=== PATIENT | male | born 1930 | race Caucasian/White ===

== ENCOUNTER 2017-11-28 13:57 | Emergency (ER) | payer MEDICARE, BC, MEDICAID ==
[2017-11-28 18:19] LABS: ADD MAN DIFF? NO
[2017-11-28 18:21] LABS: BASOPHIL # 0.1 10^3/ul (0.0-0.1); EOSINOPHILS # 0.1 10^3/ul (0.0-0.5); EOSINOPHILS % 0.7 % (0.0-7.0); HEMATOCRIT 45.6 % (42.0-52.0); HEMOGLOBIN 15.2 g/dl (14.0-18.0); LYMPHOCYTES # 1.7 10^3/ul (0.8-2.9); LYMPHOCYTES % 24.9 % (15.0-51.0); MEAN CORPUSCULAR HEMOGLOBIN 29.6 pg (29.0-33.0); MEAN CORPUSCULAR HGB CONC 33.3 g/dl (32.0-37.0); MEAN CORPUSCULAR VOLUME 88.7 fl (82.0-101.0); MEAN PLATELET VOLUME 10.3 fl (7.4-10.4); MONOCYTE # 0.7 10^3/ul (0.3-0.9); NEUTROPHIL # 4.3 10^3/ul (1.6-7.5); NEUTROPHILS % 63.1 % (39.0-77.0); PLATELET COUNT 215 10^3/UL (140-415); RED BLOOD COUNT 5.14 10^6/ul (4.70-6.10); RED CELL DISTRIBUTION WIDTH 12.7 % (11.5-14.5)
[2017-11-28 18:21] LABS: WHITE BLOOD COUNT 6.8 10^3/ul (4.8-10.8)
[2017-11-28 19:01] LABS: ALANINE AMINOTRANSFERASE 39 IU/L (13-69); ALBUMIN 4.8 g/dl (3.3-4.9); ALBUMIN/GLOBULIN RATIO 1.45; ALKALINE PHOSPHATASE 110 IU/L (42-121); ANION GAP 23 (8-16); ASPARTATE AMINO TRANSFERASE 27 IU/L (15-46); BILIRUBIN,INDIRECT 0.6 mg/dl (0-1.1); BILIRUBIN,TOTAL 0.6 mg/dl (0.2-1.3); BLOOD UREA NITROGEN 33 mg/dl (7-20); CALCIUM 10.1 mg/dl (8.4-10.2); CARBON DIOXIDE 24 mmol/L (21-31); CHLORIDE 102 mmol/L (97-110); GLUCOSE 314 mg/dl (70-220); POTASSIUM 5.5 mmol/L (3.5-5.1); SODIUM 143 mmol/L (135-144); TOTAL PROTEIN 8.1 g/dl (6.1-8.1)
[2017-11-28 19:03] LABS: LACTIC ACID 2.7 mmol/L (0.5-2.0)
[2017-11-28 19:12] LABS: TROPONIN-I < 0.012 ng/ml (0.00-0.12)
[2017-11-28] MEDS: SOD CHLORIDE 0.9% 1,000 ML IV ×2 (19:29→19:30)
[2017-11-28 20:22] LABS: ADD UMIC NO; UR ASCORBIC ACID NEGATIVE (NEGATIVE); UR BILIRUBIN (Dip) NEGATIVE (NEGATIVE); UR BLOOD (Dip) NEGATIVE (NEGATIVE); UR CLARITY CLEAR (CLEAR); UR COLOR YELLOW (YELLOW); UR GLUCOSE (Dip) 3+ mg/dL (NEGATIVE); UR KETONES (Dip) NEGATIVE (NEGATIVE); UR LEUKOCYTE ESTERASE (Dip) NEGATIVE Leu/ul (NEGATIVE); UR NITRITE (Dip) NEGATIVE (NEGATIVE); UR SPECIFIC GRAVITY (Dip) 1.013 (1.003-1.030); UR TOTAL PROTEIN (Dip) NEGATIVE (NEGATIVE); UR UROBILINOGEN (Dip) NEGATIVE (NEGATIVE)
[2017-11-28] MEDS: ASPIRIN 81 MG TAB PO (22:08)
[2017-11-28] MEDS ORDERED: DOCUSATE SODIUM 100 MG CAP PO (23:00)
[2017-11-28] MEDS ORDERED: BISACODYL (EC) 5 MG TAB PO (23:00)
[2017-11-28] MEDS ORDERED: ONDANSETRON 4 MG INJ IV ×2 (23:00)
[2017-11-28] MEDS ORDERED: NACL 0.9% 3 ML SYG IV (23:00)
[2017-11-28] MEDS ORDERED: ACETAMINOPHEN 325 MG TAB PO ×2 (23:00)
[2017-11-29] MEDS: NA POLYST SULFON 15 GM/60 ML BTL PO (00:07)
[2017-11-29 06:00] LABS: ADD MAN DIFF? NO
[2017-11-29 06:07] LABS: BASOPHILS % 0.6 % (0.0-2.0); EOSINOPHILS # 0.1 10^3/ul (0.0-0.5); HEMATOCRIT 38.9 % (42.0-52.0); LYMPHOCYTES # 1.2 10^3/ul (0.8-2.9); LYMPHOCYTES % 16.4 % (15.0-51.0); MEAN CORPUSCULAR HEMOGLOBIN 29.8 pg (29.0-33.0); MEAN CORPUSCULAR HGB CONC 33.4 g/dl (32.0-37.0); MEAN CORPUSCULAR VOLUME 89.2 fl (82.0-101.0); MEAN PLATELET VOLUME 10.5 fl (7.4-10.4); MONOCYTE # 0.5 10^3/ul (0.3-0.9); NEUTROPHIL # 5.4 10^3/ul (1.6-7.5); NEUTROPHILS % 74.7 % (39.0-77.0); PLATELET COUNT 181 10^3/UL (140-415); RED BLOOD COUNT 4.36 10^6/ul (4.70-6.10); RED CELL DISTRIBUTION WIDTH 12.8 % (11.5-14.5)
[2017-11-29 06:07] LABS: WHITE BLOOD COUNT 7.3 10^3/ul (4.8-10.8)
[2017-11-29 06:16] LABS: HEMOGLOBIN A1C 8.3 % (0-5.9)
[2017-11-29] MEDS ORDERED: SOD CHLORIDE 0.9% 1,000 ML IV (06:30)
[2017-11-29 06:49] LABS: ALANINE AMINOTRANSFERASE 36 IU/L (13-69); ALBUMIN 3.6 g/dl (3.3-4.9); ALBUMIN/GLOBULIN RATIO 1.16; ALKALINE PHOSPHATASE 86 IU/L (42-121); ANION GAP 16 (8-16); ASPARTATE AMINO TRANSFERASE 24 IU/L (15-46); BILIRUBIN,INDIRECT 0.8 mg/dl (0-1.1); BILIRUBIN,TOTAL 0.8 mg/dl (0.2-1.3); BLOOD UREA NITROGEN 28 mg/dl (7-20); CARBON DIOXIDE 26 mmol/L (21-31); CHLORIDE 109 mmol/L (97-110); CHOL/HDL RATIO 4.1 RATIO; CHOLESTEROL 129 mg/dl (100-200); CREATININE 1.23 mg/dl (0.61-1.24); GLUCOSE 192 mg/dl (70-220); HDL CHOLESTEROL 31 mg/dl (31-75); LDL CHOLESTEROL,CALCULATED 73 mg/dl; MAGNESIUM 2.1 mg/dl (1.7-2.5); POTASSIUM 4.9 mmol/L (3.5-5.1); SODIUM 146 mmol/L (135-144); TOTAL PROTEIN 6.7 g/dl (6.1-8.1); TRIGLYCERIDES 126 mg/dl (0-149)
[2017-11-29] MEDS ORDERED: GLUCAGON 1 MG INJ IM (07:00)
[2017-11-29] MEDS ORDERED: DEXTROSE 50% 50 ML SYRINGE IV ×2 (07:00)
[2017-11-29] MEDS ORDERED: GLUCOSE GEL 15 GRAM TUBE BUCCAL (07:00)
[2017-11-29] MEDS ORDERED: GLUCOSE GEL 15 GRAM TUBE PO ×2 (07:00)
[2017-11-29 08:25] LABS: LACTIC ACID 1.2 mmol/L (0.5-2.0)
[2017-11-29 08:28] LABS: ETHANOL < 10.0 mg/dl
[2017-11-29] MEDS: INSULIN ASPART [NOVOLOG] 3 ML PEN SC (09:50)
[2017-11-29 09:54] LABS: AMPHETAMINE/METHAMPHETAMINE Negative (NEGATIVE); BARBITURATES Negative (NEGATIVE); BENZODIAZEPINES Negative (NEGATIVE); CANNABINOIDS Negative (NEGATIVE); COCAINE Negative (NEGATIVE); OPIATES Negative (NEGATIVE)
[2017-11-29] MEDS: ASPIRIN 81 MG TAB PO (09:54)
[2017-11-29] MEDS: AMLODIPINE 10 MG TAB PO (09:54)
[2017-11-29] MEDS: MEMANTINE 5 MG TAB PO (09:54)
[2017-11-29] MEDS: DONEPEZIL 5 MG TAB PO (09:54)
[2017-11-29] MEDS ORDERED: ATORVASTATIN 10 MG TAB PO (21:00)
[2017-11-30] MEDS ORDERED: ACCU-CHEK XX (02:00)
== END 2017-11-29 13:13 | disposition home or self-care (01) ==
LOC: E/R 11-29 13:13
DX: G45.9 Transient cerebral ischemic attack, unspecified (principal); E86.0 Dehydration; E87.5 Hyperkalemia
CPT/HCPCS: 36415; 70450; 80053; 80061; 80306; 80307; 81003; 82962; 83036; 83605; 83735; 84443; 84484; 85025; 93005; 93306; 93880; 96360; 99285-25

== ENCOUNTER 2018-03-13 18:32 | Inpatient (IN) | payer MEDICARE, BC ==
[2018-03-13 18:54] LABS: ADD MAN DIFF? NO
[2018-03-13 18:56] LABS: WHITE BLOOD COUNT 6.4 10^3/ul (4.8-10.8)
[2018-03-13 18:56] LABS: BASOPHILS % 0.6 % (0.0-2.0); EOSINOPHILS # 0.1 10^3/ul (0.0-0.5); EOSINOPHILS % 1.1 % (0.0-7.0); HEMATOCRIT 45.6 % (42.0-52.0); HEMOGLOBIN 15.1 g/dl (14.0-18.0); LYMPHOCYTES # 2.6 10^3/ul (0.8-2.9); LYMPHOCYTES % 40.3 % (15.0-51.0); MEAN CORPUSCULAR HEMOGLOBIN 29.5 pg (29.0-33.0); MEAN CORPUSCULAR HGB CONC 33.1 g/dl (32.0-37.0); MEAN CORPUSCULAR VOLUME 89.2 fl (82.0-101.0); MEAN PLATELET VOLUME 10.4 fl (7.4-10.4); MONOCYTE # 0.5 10^3/ul (0.3-0.9); MONOCYTES % 7.2 % (0.0-11.0); NEUTROPHIL # 3.2 10^3/ul (1.6-7.5); NEUTROPHILS % 49.7 % (39.0-77.0); PLATELET COUNT 174 10^3/UL (140-415); RED BLOOD COUNT 5.11 10^6/ul (4.70-6.10); RED CELL DISTRIBUTION WIDTH 13.2 % (11.5-14.5)
[2018-03-13] MEDS: FENTAnyl 50 MCG/ML VIAL IV (19:03)
[2018-03-13] MEDS: SOD CHLORIDE 0.9% 1,000 ML IV (19:04)
[2018-03-13] MEDS: ASPIRIN 300 MG SUPP PR ×2 (19:04→20:51)
[2018-03-13 19:26] LABS: ALANINE AMINOTRANSFERASE 36 IU/L (13-69); ALBUMIN 4.3 g/dl (3.3-4.9); ALBUMIN/GLOBULIN RATIO 1.22; ALKALINE PHOSPHATASE 84 IU/L (42-121); ANION GAP 20 (8-16); ASPARTATE AMINO TRANSFERASE 50 IU/L (15-46); BILIRUBIN,INDIRECT 0.8 mg/dl (0-1.1); BILIRUBIN,TOTAL 0.8 mg/dl (0.2-1.3); BLOOD UREA NITROGEN 21 mg/dl (7-20); CALCIUM 9.4 mg/dl (8.4-10.2); CARBON DIOXIDE 16 mmol/L (21-31); CHLORIDE 109 mmol/L (97-110); CREATININE 1.08 mg/dl (0.61-1.24); GLUCOSE 249 mg/dl (70-220); SODIUM 141 mmol/L (135-144); TOTAL PROTEIN 7.8 g/dl (6.1-8.1)
[2018-03-13 19:27] LABS: INR 1.05; PROTIME 13.8 Sec (11.9-14.9); PT RATIO 1.1
[2018-03-13 19:28] LABS: PARTIAL THROMBOPLASTIN TIME 35.3 Sec (25.0-35.0)
[2018-03-13 19:31] LABS: LACTIC ACID 8.5 mmol/L (0.5-2.0)
[2018-03-13] MEDS: SODIUM CHLORIDE 0.9% 1L BAG IV* (20:08)
[2018-03-13 20:09] LABS: AADO2 Arterial 95.9 mmHg (7.0-24.0); Allen Test ACCEPTAB; Arterial Base Excess -8.5 mmol/L (-3.0-3); Arterial COHb 1.9 % (0.0-3.0); Arterial Fraction of Oxyhgb 97.4 % (93.0-99.0); Arterial HCO3 16.9 mmol/L (22.0-26.0); Arterial MetHb 0.3 % (0.0-1.5); Arterial Total Hemglobin 13.4 g/dl (12.0-18.0); Arterial pCO2 35.1 mmhg (35-45); MODE VENT - AC; Site Left Radial
[2018-03-13] MEDS: CEFEPIME 1GM/50 ML (PMX) 50 ML IVPB (20:11)
[2018-03-13] MEDS: SODIUM CHLORIDE 0.9% 500 ML BAG IV* ×2 (20:11→21:01)
[2018-03-13 20:19] LABS: ADD UMIC YES; UR ASCORBIC ACID NEGATIVE (NEGATIVE); UR BACTERIA FEW /HPF (NONE SEEN); UR BILIRUBIN (Dip) NEGATIVE (NEGATIVE); UR BLOOD (Dip) NEGATIVE (NEGATIVE); UR CLARITY CLOUDY (CLEAR); UR COLOR YELLOW (YELLOW); UR GLUCOSE (Dip) 3+ mg/dL (NEGATIVE); UR KETONES (Dip) NEGATIVE (NEGATIVE); UR LEUKOCYTE ESTERASE (Dip) NEGATIVE Leu/ul (NEGATIVE); UR MUCUS FEW /HPF (NONE SEEN); UR NITRITE (Dip) NEGATIVE (NEGATIVE); UR RBC 10 /HPF (0-5); UR SPECIFIC GRAVITY (Dip) 1.021 (1.003-1.030); UR SQUAMOUS EPITHELIAL CELL MODERATE /HPF (FEW); UR TOTAL PROTEIN (Dip) 3+ mg/dl (NEGATIVE); UR UROBILINOGEN (Dip) NEGATIVE (NEGATIVE); UR WBC 17 /HPF (0-5)
[2018-03-13 20:19] LABS: LACTIC ACID 4.1 mmol/L (0.5-2.0)
[2018-03-13] MEDS ORDERED: ACETAMINOPHEN 325 MG TAB PO (20:30)
[2018-03-13] MEDS ORDERED: ONDANSETRON 4 MG INJ IV ×2 (20:30→21:30)
[2018-03-13 20:35] LABS: PHOSPHORUS 4.2 mg/dl (2.5-4.9)
[2018-03-13 20:35] LABS: MAGNESIUM 1.8 mg/dl (1.7-2.5)
[2018-03-13] MEDS: SOD CHLORIDE 0.9% 100 ML (20:37)
[2018-03-13] MEDS: IODIXANOL LOCM 100 ML BTL (20:37)
[2018-03-13] MEDS: VANCOMYCIN 1 GM (PMX) 250 ML IVPB (20:46)
[2018-03-13] MEDS ORDERED: ACETAMINOPHEN 650MG/20.3ML CUP PO (21:30)
[2018-03-13] MEDS ORDERED: IPRATROPIUM (HFA) 12.9 GM INHALER INH (21:30)
[2018-03-13] MEDS ORDERED: MEPERIDINE 25 MG INJ IV ×2 (21:30)
[2018-03-13] MEDS ORDERED: LORAZEPAM 2 MG INJ IV (21:30)
[2018-03-13] MEDS ORDERED: ALBUTEROL HFA 8 GM INHALER INH (21:30)
[2018-03-13] MEDS ORDERED: morphine 2 MG INJ IV (21:30)
[2018-03-13] MEDS ORDERED: ACETAMINOPHEN 650 MG SUPP PR (21:30)
[2018-03-13] MEDS ORDERED: DEXTROSE 50% 50 ML SYRINGE IV ×2 (21:30)
[2018-03-13] MEDS: FENTAnyl (DRIP) 1000 mcg/100mL 100 ML IV (21:53)
[2018-03-13 21:56] LABS: AADO2 Arterial 34.3 mmHg (7.0-24.0); Allen Test ACCEPTAB; Arterial Base Excess -7.7 mmol/L (-3.0-3); Arterial COHb 0.2 % (0.0-3.0); Arterial Fraction of Oxyhgb 98.6 % (93.0-99.0); Arterial HCO3 18.9 mmol/L (22.0-26.0); Arterial MetHb 0.2 % (0.0-1.5); Arterial Total Hemglobin 14.4 g/dl (12.0-18.0); Arterial pCO2 39.1 mmhg (35-45); MODE VENT - AC; Site Left Radial; Temperature 35.3 C
[2018-03-13] MEDS: PROPOFOL 100 ML IV (22:14)
[2018-03-13] MEDS: ACCU-CHEK XX ×2 (22:14→22:30)
[2018-03-13 22:23] LABS: ADD MAN DIFF? NO
[2018-03-13 22:29] LABS: WHITE BLOOD COUNT 10.7 10^3/ul (4.8-10.8)
[2018-03-13 22:29] LABS: ABNORMAL IP MESSAGE 1; BASOPHILS % 0.2 % (0.0-2.0); EOSINOPHILS % 0.1 % (0.0-7.0); HEMATOCRIT 38.9 % (42.0-52.0); HEMOGLOBIN 12.7 g/dl (14.0-18.0); LYMPHOCYTES # 0.6 10^3/ul (0.8-2.9); LYMPHOCYTES % 5.1 % (15.0-51.0); MEAN CORPUSCULAR HEMOGLOBIN 29.3 pg (29.0-33.0); MEAN CORPUSCULAR HGB CONC 32.6 g/dl (32.0-37.0); MEAN CORPUSCULAR VOLUME 89.8 fl (82.0-101.0); MONOCYTE # 0.6 10^3/ul (0.3-0.9); MONOCYTES % 5.8 % (0.0-11.0); NEUTROPHIL # 9.5 10^3/ul (1.6-7.5); NEUTROPHILS % 88.2 % (39.0-77.0); PLATELET COUNT 157 10^3/UL (140-415); POSITIVE DIFF @See below; RED BLOOD COUNT 4.33 10^6/ul (4.70-6.10); RED CELL DISTRIBUTION WIDTH 13.2 % (11.5-14.5)
[2018-03-13 22:46] LABS: ALANINE AMINOTRANSFERASE 46 IU/L (13-69); ALBUMIN 3.2 g/dl (3.3-4.9); ALBUMIN/GLOBULIN RATIO 1.18; ALKALINE PHOSPHATASE 76 IU/L (42-121); ANION GAP 11 (8-16); ASPARTATE AMINO TRANSFERASE 42 IU/L (15-46); BILIRUBIN,INDIRECT 0.7 mg/dl (0-1.1); BILIRUBIN,TOTAL 0.7 mg/dl (0.2-1.3); BLOOD UREA NITROGEN 20 mg/dl (7-20); CALCIUM 8.3 mg/dl (8.4-10.2); CARBON DIOXIDE 21 mmol/L (21-31); CHLORIDE 113 mmol/L (97-110); CREATININE 0.95 mg/dl (0.61-1.24); GLUCOSE 240 mg/dl (70-220); POTASSIUM 4.5 mmol/L (3.5-5.1); SODIUM 140 mmol/L (135-144); TOTAL PROTEIN 5.9 g/dl (6.1-8.1)
[2018-03-13 22:53] LABS: PARTIAL THROMBOPLASTIN TIME 29.7 Sec (25.0-35.0)
[2018-03-13 22:58] LABS: TROPONIN-I 0.489 ng/ml (0.000-0.120)
[2018-03-13 23:10] LABS: INR 1.13; PROTIME 14.7 Sec (11.9-14.9); PT RATIO 1.1
[2018-03-14] MEDS: ACCU-CHEK XX ×24 (00:29→23:56)
[2018-03-14] MEDS: INSULIN HUMAN REGULAR 100 UNIT in SOD CHLORIDE 0.9% 99 ML IV ×2 (00:52→23:56)
[2018-03-14] MEDS: PROPOFOL 100 ML IV ×3 (02:01→22:43)
[2018-03-14] MEDS: DEXTROSE 5%-0.45% NACL 1,000 ML IV ×3 (02:24→18:01)
[2018-03-14] MEDS: VECURONIUM 100 MG in DEXTROSE 5% 100 ML IV ×4 (02:33→23:54)
[2018-03-14 04:15] LABS: ADD MAN DIFF? NO
[2018-03-14 04:19] LABS: BASOPHILS % 0.3 % (0.0-2.0); EOSINOPHILS % 0.1 % (0.0-7.0); HEMATOCRIT 38.4 % (42.0-52.0); HEMOGLOBIN 12.8 g/dl (14.0-18.0); LYMPHOCYTES # 0.8 10^3/ul (0.8-2.9); LYMPHOCYTES % 7.6 % (15.0-51.0); MEAN CORPUSCULAR HEMOGLOBIN 29.3 pg (29.0-33.0); MEAN CORPUSCULAR HGB CONC 33.3 g/dl (32.0-37.0); MEAN CORPUSCULAR VOLUME 87.9 fl (82.0-101.0); MEAN PLATELET VOLUME 10.2 fl (7.4-10.4); MONOCYTE # 0.6 10^3/ul (0.3-0.9); MONOCYTES % 6.1 % (0.0-11.0); NEUTROPHIL # 8.5 10^3/ul (1.6-7.5); NEUTROPHILS % 85.5 % (39.0-77.0); PLATELET COUNT 147 10^3/UL (140-415); RED BLOOD COUNT 4.37 10^6/ul (4.70-6.10); RED CELL DISTRIBUTION WIDTH 13.2 % (11.5-14.5)
[2018-03-14] MEDS ORDERED: PENDING SANTYL ORDER FOR WOUND CARE XX (04:30)
[2018-03-14 04:38] LABS: INR 1.02; PROTIME 13.5 Sec (11.9-14.9); PT RATIO 1.1
[2018-03-14 04:39] LABS: PARTIAL THROMBOPLASTIN TIME 30.3 Sec (25.0-35.0)
[2018-03-14 04:42] LABS: ALANINE AMINOTRANSFERASE 52 IU/L (13-69); ALBUMIN/GLOBULIN RATIO 1.03; ALKALINE PHOSPHATASE 67 IU/L (42-121); AMYLASE 168 U/L (11-123); ANION GAP 13 (8-16); ASPARTATE AMINO TRANSFERASE 51 IU/L (15-46); BILIRUBIN,INDIRECT 0.5 mg/dl (0-1.1); BILIRUBIN,TOTAL 0.5 mg/dl (0.2-1.3); BLOOD UREA NITROGEN 20 mg/dl (7-20); CALCIUM 8.5 mg/dl (8.4-10.2); CARBON DIOXIDE 25 mmol/L (21-31); CHLORIDE 112 mmol/L (97-110); CREATININE 0.82 mg/dl (0.61-1.24); GLUCOSE 205 mg/dl (70-220); LIPASE 157 U/L (23-300); MAGNESIUM 1.9 mg/dl (1.7-2.5); PHOSPHORUS 2.6 mg/dl (2.5-4.9); POTASSIUM 3.7 mmol/L (3.5-5.1); SODIUM 146 mmol/L (135-144); TOTAL PROTEIN 5.9 g/dl (6.1-8.1)
[2018-03-14 04:45] LABS: AADO2 Arterial 57.5 mmHg (7.0-24.0); Allen Test ACCEPTAB; Arterial Base Excess -2.5 mmol/L (-3.0-3); Arterial Blood Gas Oxygen Sat 98.7 mmHG (95.0-100.0); Arterial COHb 0.3 % (0.0-3.0); Arterial Fraction of Oxyhgb 98.1 % (93.0-99.0); Arterial HCO3 20.9 mmol/L (22.0-26.0); Arterial MetHb 0.3 % (0.0-1.5); Arterial Total Hemglobin 13.3 g/dl (12.0-18.0); Arterial pCO2 27.8 mmhg (35-45); MODE VENT - AC; Site Right Radial; Temperature 33.5 C
[2018-03-14 04:57] LABS: LACTIC ACID 2.1 mmol/L (0.5-2.0)
[2018-03-14] MEDS: SOD CHLORIDE 0.9% 1,000 ML IV ×3 (05:06→23:53)
[2018-03-14 05:09] LABS: D-DIMER 9967.29 ng/ml (<460)
[2018-03-14] MEDS: ARTIFICIAL TEARS 15 ML OPH BOTH EYES ×4 (05:11→18:01)
[2018-03-14] MEDS: OCULAR LUBRICANT 3.5 GM OPH OINT BOTH EYES ×4 (05:12→18:01)
[2018-03-14] MEDS: CEFEPIME 1GM/50 ML (PMX) 50 ML IVPB ×2 (09:08→20:54)
[2018-03-14] MEDS: FAMOTIDINE 20 MG INJ IV ×2 (09:08→20:54)
[2018-03-14] MEDS: HEPARIN 5,000 UNIT/0.5 ML VIAL SC ×2 (09:10→20:54)
[2018-03-14 10:26] LABS: AADO2 Arterial 60.5 mmHg (7.0-24.0); Allen Test ACCEPTAB; Arterial Base Excess -1.3 mmol/L (-3.0-3); Arterial Blood Gas Oxygen Sat 98.9 mmHG (95.0-100.0); Arterial COHb 0.5 % (0.0-3.0); Arterial Fraction of Oxyhgb 98.2 % (93.0-99.0); Arterial HCO3 21.9 mmol/L (22.0-26.0); Arterial MetHb 0.2 % (0.0-1.5); Arterial Total Hemglobin 13.7 g/dl (12.0-18.0); Arterial pCO2 27.8 mmhg (35-45); MODE VENT - AC; Site Right Radial; Temperature 33.4 C
[2018-03-14 10:30] LABS: ADD MAN DIFF? NO
[2018-03-14 10:38] LABS: BASOPHILS % 0.3 % (0.0-2.0); EOSINOPHILS % 0.1 % (0.0-7.0); HEMATOCRIT 37.3 % (42.0-52.0); HEMOGLOBIN 12.8 g/dl (14.0-18.0); LYMPHOCYTES # 0.6 10^3/ul (0.8-2.9); MEAN CORPUSCULAR HEMOGLOBIN 29.8 pg (29.0-33.0); MEAN CORPUSCULAR HGB CONC 34.3 g/dl (32.0-37.0); MEAN CORPUSCULAR VOLUME 86.7 fl (82.0-101.0); MEAN PLATELET VOLUME 10.5 fl (7.4-10.4); MONOCYTE # 0.4 10^3/ul (0.3-0.9); NEUTROPHIL # 6.5 10^3/ul (1.6-7.5); NEUTROPHILS % 86.3 % (39.0-77.0); PLATELET COUNT 143 10^3/UL (140-415); RED CELL DISTRIBUTION WIDTH 13.2 % (11.5-14.5)
[2018-03-14 10:38] LABS: WHITE BLOOD COUNT 7.5 10^3/ul (4.8-10.8)
[2018-03-14 10:56] LABS: LACTIC ACID 2.2 mmol/L (0.5-2.0)
[2018-03-14 11:04] LABS: ALANINE AMINOTRANSFERASE 51 IU/L (13-69); ALBUMIN 2.8 g/dl (3.3-4.9); ALBUMIN/GLOBULIN RATIO 1.07; ALKALINE PHOSPHATASE 65 IU/L (42-121); AMYLASE 134 U/L (11-123); ANION GAP 11 (8-16); ASPARTATE AMINO TRANSFERASE 50 IU/L (15-46); BILIRUBIN,INDIRECT 0.6 mg/dl (0-1.1); BILIRUBIN,TOTAL 0.6 mg/dl (0.2-1.3); BLOOD UREA NITROGEN 17 mg/dl (7-20); CALCIUM 8.3 mg/dl (8.4-10.2); CARBON DIOXIDE 24 mmol/L (21-31); CHLORIDE 112 mmol/L (97-110); GLUCOSE 158 mg/dl (70-220); LIPASE 158 U/L (23-300); MAGNESIUM 1.8 mg/dl (1.7-2.5); PHOSPHORUS 1.8 mg/dl (2.5-4.9); POTASSIUM 3.1 mmol/L (3.5-5.1); SODIUM 144 mmol/L (135-144); TOTAL PROTEIN 5.4 g/dl (6.1-8.1)
[2018-03-14] MEDS: MAGNESIUM SULFATE 2 GM/50 ML 50 ML IVPB (11:42)
[2018-03-14] MEDS: SOD CHLORIDE 0.9% 500 ML IV (12:51)
[2018-03-14] MEDS: POTASSIUM CHLORIDE 100 ML IVPB (13:50)
[2018-03-14 15:23] LABS: Allen Test ACCEPTAB; Arterial Base Excess -1.6 mmol/L (-3.0-3); Arterial Blood Gas Oxygen Sat 98.9 mmHG (95.0-100.0); Arterial COHb 0.3 % (0.0-3.0); Arterial Fraction of Oxyhgb 98.4 % (93.0-99.0); Arterial HCO3 21.4 mmol/L (22.0-26.0); Arterial MetHb 0.2 % (0.0-1.5); Arterial Total Hemglobin 13.4 g/dl (12.0-18.0); Arterial pCO2 26.4 mmhg (35-45); MODE VENT - AC; Site Right Radial; Temperature 33.3 C
[2018-03-14 16:52] LABS: ADD MAN DIFF? NO
[2018-03-14 16:55] LABS: BASOPHILS % 0.2 % (0.0-2.0); EOSINOPHILS % 0.1 % (0.0-7.0); HEMATOCRIT 36.9 % (42.0-52.0); HEMOGLOBIN 12.7 g/dl (14.0-18.0); LYMPHOCYTES # 0.7 10^3/ul (0.8-2.9); LYMPHOCYTES % 8.2 % (15.0-51.0); MEAN CORPUSCULAR HEMOGLOBIN 29.7 pg (29.0-33.0); MEAN CORPUSCULAR HGB CONC 34.4 g/dl (32.0-37.0); MEAN CORPUSCULAR VOLUME 86.2 fl (82.0-101.0); MEAN PLATELET VOLUME 10.5 fl (7.4-10.4); MONOCYTE # 0.4 10^3/ul (0.3-0.9); NEUTROPHILS % 86.3 % (39.0-77.0); PLATELET COUNT 141 10^3/UL (140-415); RED BLOOD COUNT 4.28 10^6/ul (4.70-6.10); RED CELL DISTRIBUTION WIDTH 13.2 % (11.5-14.5)
[2018-03-14 16:55] LABS: WHITE BLOOD COUNT 8.2 10^3/ul (4.8-10.8)
[2018-03-14 17:12] LABS: ALANINE AMINOTRANSFERASE 45 IU/L (13-69); ALBUMIN 2.9 g/dl (3.3-4.9); ALKALINE PHOSPHATASE 66 IU/L (42-121); AMYLASE 143 U/L (11-123); ANION GAP 10 (8-16); ASPARTATE AMINO TRANSFERASE 51 IU/L (15-46); BILIRUBIN,INDIRECT 0.8 mg/dl (0-1.1); BILIRUBIN,TOTAL 0.8 mg/dl (0.2-1.3); BLOOD UREA NITROGEN 16 mg/dl (7-20); CALCIUM 8.1 mg/dl (8.4-10.2); CARBON DIOXIDE 22 mmol/L (21-31); CHLORIDE 115 mmol/L (97-110); CREATININE 0.71 mg/dl (0.61-1.24); GLUCOSE 105 mg/dl (70-220); LIPASE 116 U/L (23-300); MAGNESIUM 2.7 mg/dl (1.7-2.5); PHOSPHORUS 1.5 mg/dl (2.5-4.9); POTASSIUM 3.5 mmol/L (3.5-5.1); SODIUM 143 mmol/L (135-144); TOTAL PROTEIN 5.8 g/dl (6.1-8.1)
[2018-03-14 17:13] LABS: LACTIC ACID 1.6 mmol/L (0.5-2.0)
[2018-03-14 17:14] LABS: INR 1.03; PROTIME 13.6 Sec (11.9-14.9); PT RATIO 1.1
[2018-03-14 17:15] LABS: PARTIAL THROMBOPLASTIN TIME 39.6 Sec (25.0-35.0)
[2018-03-14 17:28] LABS: TROPONIN-I 0.592 ng/ml (0.000-0.120)
[2018-03-14 21:24] LABS: AADO2 Arterial 60.7 mmHg (7.0-24.0); Allen Test ACCEPTAB; Arterial Base Excess -2.6 mmol/L (-3.0-3); Arterial Blood Gas Oxygen Sat 98.7 mmHG (95.0-100.0); Arterial COHb 0.3 % (0.0-3.0); Arterial Fraction of Oxyhgb 98.3 % (93.0-99.0); Arterial HCO3 20.4 mmol/L (22.0-26.0); Arterial MetHb 0.1 % (0.0-1.5); Arterial Total Hemglobin 13.6 g/dl (12.0-18.0); Arterial pCO2 26.3 mmhg (35-45); MODE VENT - AC; Site Right Radial; Temperature 33.4 C
[2018-03-14] MEDS: ACETAMINOPHEN 650 MG SUPP PR (21:30)
[2018-03-14 22:24] LABS: ADD MAN DIFF? NO
[2018-03-14 22:28] LABS: WHITE BLOOD COUNT 8.8 10^3/ul (4.8-10.8)
[2018-03-14 22:28] LABS: BASOPHILS % 0.1 % (0.0-2.0); EOSINOPHILS % 0.2 % (0.0-7.0); HEMATOCRIT 36.8 % (42.0-52.0); HEMOGLOBIN 12.7 g/dl (14.0-18.0); LYMPHOCYTES # 0.7 10^3/ul (0.8-2.9); LYMPHOCYTES % 7.5 % (15.0-51.0); MEAN CORPUSCULAR HEMOGLOBIN 29.6 pg (29.0-33.0); MEAN CORPUSCULAR HGB CONC 34.5 g/dl (32.0-37.0); MEAN CORPUSCULAR VOLUME 85.8 fl (82.0-101.0); MEAN PLATELET VOLUME 10.1 fl (7.4-10.4); MONOCYTE # 0.4 10^3/ul (0.3-0.9); MONOCYTES % 4.1 % (0.0-11.0); NEUTROPHIL # 7.7 10^3/ul (1.6-7.5); NEUTROPHILS % 87.9 % (39.0-77.0); PLATELET COUNT 129 10^3/UL (140-415); POSITIVE DIFF @See below; RED BLOOD COUNT 4.29 10^6/ul (4.70-6.10); RED CELL DISTRIBUTION WIDTH 13.2 % (11.5-14.5)
[2018-03-14 22:46] LABS: INR 1.09; PROTIME 14.2 Sec (11.9-14.9); PT RATIO 1.1
[2018-03-14 22:47] LABS: PARTIAL THROMBOPLASTIN TIME 62.1 Sec (25.0-35.0)
[2018-03-14 22:47] LABS: LACTIC ACID 1.2 mmol/L (0.5-2.0)
[2018-03-14 22:49] LABS: ALANINE AMINOTRANSFERASE 52 IU/L (13-69); ALBUMIN 2.7 g/dl (3.3-4.9); ALKALINE PHOSPHATASE 66 IU/L (42-121); AMYLASE 119 U/L (11-123); ANION GAP 8 (8-16); ASPARTATE AMINO TRANSFERASE 51 IU/L (15-46); BILIRUBIN,INDIRECT 0.7 mg/dl (0-1.1); BILIRUBIN,TOTAL 0.7 mg/dl (0.2-1.3); BLOOD UREA NITROGEN 15 mg/dl (7-20); CALCIUM 8.2 mg/dl (8.4-10.2); CARBON DIOXIDE 23 mmol/L (21-31); CHLORIDE 113 mmol/L (97-110); GLUCOSE 166 mg/dl (70-220); LIPASE 107 U/L (23-300); MAGNESIUM 2.5 mg/dl (1.7-2.5); PHOSPHORUS 2.1 mg/dl (2.5-4.9); POTASSIUM 3.4 mmol/L (3.5-5.1); SODIUM 141 mmol/L (135-144); TOTAL PROTEIN 5.4 g/dl (6.1-8.1)
[2018-03-14 23:01] LABS: D-DIMER 3088.46 ng/ml (<460)
[2018-03-14 23:25] LABS: TROPONIN-I 0.465 ng/ml (0.000-0.120)
[2018-03-14] MEDS: FENTAnyl (DRIP) 1000 mcg/100mL 100 ML IV (23:55)
[2018-03-15] MEDS: ACCU-CHEK XX ×25 (00:13→23:55)
[2018-03-15] MEDS: ACETAMINOPHEN 650MG/20.3ML CUP PO ×6 (00:16→23:55)
[2018-03-15] MEDS: OCULAR LUBRICANT 3.5 GM OPH OINT BOTH EYES ×5 (00:16→23:55)
[2018-03-15] MEDS: ARTIFICIAL TEARS 15 ML OPH BOTH EYES ×5 (00:16→23:55)
[2018-03-15 03:03] LABS: AADO2 Arterial 67.7 mmHg (7.0-24.0); Allen Test ACCEPTAB; Arterial Base Excess -3.6 mmol/L (-3.0-3); Arterial Blood Gas Oxygen Sat 98.5 mmHG (95.0-100.0); Arterial COHb 0.3 % (0.0-3.0); Arterial HCO3 18.7 mmol/L (22.0-26.0); Arterial MetHb 0.2 % (0.0-1.5); Arterial Total Hemglobin 12.8 g/dl (12.0-18.0); Arterial pCO2 23.1 mmhg (35-45); MODE VENT - AC; Site Right Radial; Temperature 33.9 C
[2018-03-15] MEDS: ACETAMINOPHEN 650 MG SUPP PR ×4 (03:30→21:30)
[2018-03-15] MEDS: DEXTROSE 5%-0.45% NACL 1,000 ML IV ×3 (03:54→23:55)
[2018-03-15 04:12] LABS: ADD MAN DIFF? NO
[2018-03-15 04:18] LABS: ABNORMAL IP MESSAGE 1; BASOPHILS % 0.2 % (0.0-2.0); EOSINOPHILS % 0.1 % (0.0-7.0); HEMATOCRIT 33.9 % (42.0-52.0); HEMOGLOBIN 11.8 g/dl (14.0-18.0); LYMPHOCYTES # 0.6 10^3/ul (0.8-2.9); LYMPHOCYTES % 6.3 % (15.0-51.0); MEAN CORPUSCULAR HEMOGLOBIN 29.4 pg (29.0-33.0); MEAN CORPUSCULAR HGB CONC 34.8 g/dl (32.0-37.0); MEAN CORPUSCULAR VOLUME 84.5 fl (82.0-101.0); MEAN PLATELET VOLUME 10.6 fl (7.4-10.4); MONOCYTE # 0.3 10^3/ul (0.3-0.9); MONOCYTES % 3.5 % (0.0-11.0); NEUTROPHIL # 8.4 10^3/ul (1.6-7.5); NEUTROPHILS % 89.7 % (39.0-77.0); PLATELET COUNT 122 10^3/UL (140-415); POSITIVE DIFF @See below; RED BLOOD COUNT 4.01 10^6/ul (4.70-6.10); RED CELL DISTRIBUTION WIDTH 13.2 % (11.5-14.5)
[2018-03-15 04:18] LABS: WHITE BLOOD COUNT 9.3 10^3/ul (4.8-10.8)
[2018-03-15 04:45] LABS: CHOLESTEROL 112 mg/dl (100-200)
[2018-03-15 04:45] LABS: CHOL/HDL RATIO 2.9 RATIO; HDL CHOLESTEROL 38 mg/dl (31-75); LDL CHOLESTEROL,CALCULATED 53 mg/dl; TRIGLYCERIDES 104 mg/dl (0-149)
[2018-03-15 04:46] LABS: ALANINE AMINOTRANSFERASE 43 IU/L (13-69); ALBUMIN 2.4 g/dl (3.3-4.9); ALBUMIN/GLOBULIN RATIO 0.96; ALKALINE PHOSPHATASE 58 IU/L (42-121); AMYLASE 79 U/L (11-123); ANION GAP 9 (8-16); ASPARTATE AMINO TRANSFERASE 44 IU/L (15-46); BILIRUBIN,INDIRECT 0.7 mg/dl (0-1.1); BILIRUBIN,TOTAL 0.7 mg/dl (0.2-1.3); BLOOD UREA NITROGEN 15 mg/dl (7-20); CALCIUM 7.7 mg/dl (8.4-10.2); CARBON DIOXIDE 20 mmol/L (21-31); CHLORIDE 117 mmol/L (97-110); CREATININE 0.71 mg/dl (0.61-1.24); GLUCOSE 197 mg/dl (70-220); LIPASE 125 U/L (23-300); MAGNESIUM 2.2 mg/dl (1.7-2.5); PHOSPHORUS 1.8 mg/dl (2.5-4.9); POTASSIUM 3.3 mmol/L (3.5-5.1); SODIUM 143 mmol/L (135-144); TOTAL PROTEIN 4.9 g/dl (6.1-8.1)
[2018-03-15 04:48] LABS: INR 1.09; PROTIME 14.3 Sec (11.9-14.9); PT RATIO 1.1
[2018-03-15 04:52] LABS: LACTIC ACID 2.2 mmol/L (0.5-2.0)
[2018-03-15 04:56] LABS: TROPONIN-I 0.357 ng/ml (0.000-0.120)
[2018-03-15 05:25] LABS: HEMOGLOBIN A1C 7.3 % (0-5.9)
[2018-03-15 06:06] LABS: PARTIAL THROMBOPLASTIN TIME 76.3 Sec (25.0-35.0)
[2018-03-15] MEDS: FAMOTIDINE 20 MG INJ IV ×2 (08:22→21:01)
[2018-03-15] MEDS: HEPARIN 5,000 UNIT/0.5 ML VIAL SC ×2 (08:24→21:12)
[2018-03-15] MEDS: CEFEPIME 1GM/50 ML (PMX) 50 ML IVPB ×2 (08:25→21:02)
[2018-03-15] MEDS: ASPIRIN 81 MG TAB PO (08:25)
[2018-03-15] MEDS: PROPOFOL 100 ML IV (08:47)
[2018-03-15 11:13] LABS: ADD MAN DIFF? NO
[2018-03-15 11:18] LABS: BASOPHILS % 0.1 % (0.0-2.0); EOSINOPHILS % 0.2 % (0.0-7.0); HEMATOCRIT 33.2 % (42.0-52.0); HEMOGLOBIN 11.3 g/dl (14.0-18.0); LYMPHOCYTES # 0.6 10^3/ul (0.8-2.9); LYMPHOCYTES % 6.3 % (15.0-51.0); MEAN CORPUSCULAR HEMOGLOBIN 29.3 pg (29.0-33.0); MONOCYTE # 0.3 10^3/ul (0.3-0.9); MONOCYTES % 2.8 % (0.0-11.0); NEUTROPHIL # 8.7 10^3/ul (1.6-7.5); PLATELET COUNT 126 10^3/UL (140-415); POSITIVE DIFF @See below; RED BLOOD COUNT 3.86 10^6/ul (4.70-6.10); RED CELL DISTRIBUTION WIDTH 13.2 % (11.5-14.5)
[2018-03-15 11:18] LABS: WHITE BLOOD COUNT 9.6 10^3/ul (4.8-10.8)
[2018-03-15 11:24] LABS: NEUTROPHILS % 90.3 % (39.0-77.0)
[2018-03-15 11:39] LABS: LACTIC ACID 2.1 mmol/L (0.5-2.0)
[2018-03-15 11:51] LABS: INR 1.19; PROTIME 15.3 Sec (11.9-14.9); PT RATIO 1.2
[2018-03-15 11:58] LABS: PARTIAL THROMBOPLASTIN TIME 147.2 Sec (25.0-35.0)
[2018-03-15 13:15] LABS: ALANINE AMINOTRANSFERASE 40 IU/L (13-69); ALBUMIN 2.3 g/dl (3.3-4.9); ALBUMIN/GLOBULIN RATIO 0.82; ALKALINE PHOSPHATASE 58 IU/L (42-121); AMYLASE 108 U/L (11-123); ANION GAP 10 (8-16); ASPARTATE AMINO TRANSFERASE 41 IU/L (15-46); BILIRUBIN,INDIRECT 0.6 mg/dl (0-1.1); BILIRUBIN,TOTAL 0.6 mg/dl (0.2-1.3); BLOOD UREA NITROGEN 13 mg/dl (7-20); CALCIUM 7.4 mg/dl (8.4-10.2); CARBON DIOXIDE 17 mmol/L (21-31); CHLORIDE 118 mmol/L (97-110); CREATININE 0.77 mg/dl (0.61-1.24); GLUCOSE 186 mg/dl (70-220); LIPASE 125 U/L (23-300); MAGNESIUM 2.2 mg/dl (1.7-2.5); POTASSIUM 3.4 mmol/L (3.5-5.1); SODIUM 142 mmol/L (135-144); TOTAL PROTEIN 5.1 g/dl (6.1-8.1)
[2018-03-15 17:35] LABS: ADD MAN DIFF? NO
[2018-03-15 17:39] LABS: BASOPHILS % 0.3 % (0.0-2.0); EOSINOPHILS % 0.2 % (0.0-7.0); HEMATOCRIT 32.5 % (42.0-52.0); HEMOGLOBIN 11.2 g/dl (14.0-18.0); LYMPHOCYTES # 0.8 10^3/ul (0.8-2.9); LYMPHOCYTES % 7.5 % (15.0-51.0); MEAN CORPUSCULAR HEMOGLOBIN 29.5 pg (29.0-33.0); MEAN CORPUSCULAR HGB CONC 34.5 g/dl (32.0-37.0); MEAN CORPUSCULAR VOLUME 85.5 fl (82.0-101.0); MEAN PLATELET VOLUME 10.6 fl (7.4-10.4); MONOCYTE # 0.4 10^3/ul (0.3-0.9); MONOCYTES % 3.6 % (0.0-11.0); NEUTROPHILS % 88.1 % (39.0-77.0); PLATELET COUNT 136 10^3/UL (140-415); RED CELL DISTRIBUTION WIDTH 13.4 % (11.5-14.5)
[2018-03-15 17:39] LABS: WHITE BLOOD COUNT 10.2 10^3/ul (4.8-10.8)
[2018-03-15 18:02] LABS: PROTIME 15.4 Sec (11.9-14.9); PT RATIO 1.2
[2018-03-15 18:04] LABS: ALANINE AMINOTRANSFERASE 41 IU/L (13-69); ALBUMIN 2.3 g/dl (3.3-4.9); ALBUMIN/GLOBULIN RATIO 0.88; ALKALINE PHOSPHATASE 63 IU/L (42-121); AMYLASE 114 U/L (11-123); ANION GAP 8 (8-16); ASPARTATE AMINO TRANSFERASE 36 IU/L (15-46); BILIRUBIN,INDIRECT 0.6 mg/dl (0-1.1); BILIRUBIN,TOTAL 0.6 mg/dl (0.2-1.3); BLOOD UREA NITROGEN 13 mg/dl (7-20); CALCIUM 7.4 mg/dl (8.4-10.2); CARBON DIOXIDE 20 mmol/L (21-31); CHLORIDE 116 mmol/L (97-110); CREATININE 0.87 mg/dl (0.61-1.24); GLUCOSE 182 mg/dl (70-220); LIPASE 100 U/L (23-300); MAGNESIUM 2.1 mg/dl (1.7-2.5); PHOSPHORUS 2.1 mg/dl (2.5-4.9); POTASSIUM 3.4 mmol/L (3.5-5.1); SODIUM 141 mmol/L (135-144); TOTAL PROTEIN 4.9 g/dl (6.1-8.1)
[2018-03-15 18:05] LABS: D-DIMER 1014.87 ng/ml (<460)
[2018-03-15 18:06] LABS: LACTIC ACID 1.5 mmol/L (0.5-2.0)
[2018-03-15 18:09] LABS: PARTIAL THROMBOPLASTIN TIME 94.1 Sec (25.0-35.0)
[2018-03-15 18:52] LABS: TROPONIN-I 0.283 ng/ml (0.000-0.120)
[2018-03-15] MEDS: MUPIROCIN 2% 22 GM OINT TOP (21:02)
[2018-03-15 22:22] LABS: ADD MAN DIFF? NO
[2018-03-15 22:24] LABS: BASOPHIL # 0.1 10^3/ul (0.0-0.1); BASOPHILS % 0.5 % (0.0-2.0); EOSINOPHILS % 0.1 % (0.0-7.0); HEMATOCRIT 32.9 % (42.0-52.0); HEMOGLOBIN 11.1 g/dl (14.0-18.0); LYMPHOCYTES # 0.6 10^3/ul (0.8-2.9); LYMPHOCYTES % 5.5 % (15.0-51.0); MEAN CORPUSCULAR HEMOGLOBIN 29.1 pg (29.0-33.0); MEAN CORPUSCULAR HGB CONC 33.7 g/dl (32.0-37.0); MEAN CORPUSCULAR VOLUME 86.4 fl (82.0-101.0); MEAN PLATELET VOLUME 9.9 fl (7.4-10.4); MONOCYTE # 0.5 10^3/ul (0.3-0.9); MONOCYTES % 4.5 % (0.0-11.0); NEUTROPHIL # 9.8 10^3/ul (1.6-7.5); NEUTROPHILS % 88.9 % (39.0-77.0); PLATELET COUNT 130 10^3/UL (140-415); RED BLOOD COUNT 3.81 10^6/ul (4.70-6.10); RED CELL DISTRIBUTION WIDTH 13.7 % (11.5-14.5)
[2018-03-15 22:48] LABS: ALANINE AMINOTRANSFERASE 42 IU/L (13-69); ALBUMIN 2.3 g/dl (3.3-4.9); ALBUMIN/GLOBULIN RATIO 0.85; ALKALINE PHOSPHATASE 63 IU/L (42-121); AMYLASE 121 U/L (11-123); ANION GAP 6 (8-16); ASPARTATE AMINO TRANSFERASE 35 IU/L (15-46); BILIRUBIN,INDIRECT 0.7 mg/dl (0-1.1); BILIRUBIN,TOTAL 0.7 mg/dl (0.2-1.3); BLOOD UREA NITROGEN 13 mg/dl (7-20); CALCIUM 7.4 mg/dl (8.4-10.2); CARBON DIOXIDE 21 mmol/L (21-31); CHLORIDE 117 mmol/L (97-110); CREATININE 0.97 mg/dl (0.61-1.24); GLUCOSE 145 mg/dl (70-220); LIPASE 79 U/L (23-300); MAGNESIUM 2.1 mg/dl (1.7-2.5); PHOSPHORUS 2.1 mg/dl (2.5-4.9); POTASSIUM 3.5 mmol/L (3.5-5.1); SODIUM 140 mmol/L (135-144)
[2018-03-15 23:00] LABS: LACTIC ACID 1.8 mmol/L (0.5-2.0)
[2018-03-15 23:11] LABS: PROTIME 15.4 Sec (11.9-14.9); PT RATIO 1.2
[2018-03-15 23:15] LABS: D-DIMER 881.37 ng/ml (<460)
[2018-03-15 23:16] LABS: PARTIAL THROMBOPLASTIN TIME 77.4 Sec (25.0-35.0)
[2018-03-16] MEDS: ACCU-CHEK XX ×7 (01:00→10:36)
[2018-03-16] MEDS: FENTAnyl (DRIP) 1000 mcg/100mL 100 ML IV (04:25)
[2018-03-16] MEDS: INSULIN HUMAN REGULAR 100 UNIT in SOD CHLORIDE 0.9% 99 ML IV (04:25)
[2018-03-16 05:03] LABS: ADD MAN DIFF? NO
[2018-03-16 05:08] LABS: BASOPHILS % 0.3 % (0.0-2.0); EOSINOPHILS % 0.1 % (0.0-7.0); HEMATOCRIT 31.2 % (42.0-52.0); HEMOGLOBIN 10.6 g/dl (14.0-18.0); LYMPHOCYTES # 0.9 10^3/ul (0.8-2.9); LYMPHOCYTES % 8.8 % (15.0-51.0); MEAN CORPUSCULAR HEMOGLOBIN 29.5 pg (29.0-33.0); MEAN CORPUSCULAR VOLUME 86.9 fl (82.0-101.0); MEAN PLATELET VOLUME 10.9 fl (7.4-10.4); MONOCYTE # 0.4 10^3/ul (0.3-0.9); NEUTROPHIL # 8.8 10^3/ul (1.6-7.5); NEUTROPHILS % 86.3 % (39.0-77.0); PLATELET COUNT 137 10^3/UL (140-415); RED BLOOD COUNT 3.59 10^6/ul (4.70-6.10); RED CELL DISTRIBUTION WIDTH 13.9 % (11.5-14.5)
[2018-03-16 05:08] LABS: WHITE BLOOD COUNT 10.2 10^3/ul (4.8-10.8)
[2018-03-16 05:50] LABS: ALANINE AMINOTRANSFERASE 42 IU/L (13-69); ALBUMIN 2.2 g/dl (3.3-4.9); ALBUMIN/GLOBULIN RATIO 0.88; ALKALINE PHOSPHATASE 60 IU/L (42-121); ANION GAP 11 (8-16); ASPARTATE AMINO TRANSFERASE 33 IU/L (15-46); BILIRUBIN,INDIRECT 0.7 mg/dl (0-1.1); BILIRUBIN,TOTAL 0.7 mg/dl (0.2-1.3); BLOOD UREA NITROGEN 12 mg/dl (7-20); CALCIUM 7.4 mg/dl (8.4-10.2); CARBON DIOXIDE 22 mmol/L (21-31); CHLORIDE 112 mmol/L (97-110); CREATININE 1.02 mg/dl (0.61-1.24); GLUCOSE 183 mg/dl (70-220); PHOSPHORUS 2.4 mg/dl (2.5-4.9); POTASSIUM 3.5 mmol/L (3.5-5.1); SODIUM 141 mmol/L (135-144); TOTAL PROTEIN 4.7 g/dl (6.1-8.1)
[2018-03-16] MEDS: ACETAMINOPHEN 650MG/20.3ML CUP PO ×2 (06:08→12:05)
[2018-03-16] MEDS: OCULAR LUBRICANT 3.5 GM OPH OINT BOTH EYES ×4 (06:09→23:28)
[2018-03-16] MEDS: ARTIFICIAL TEARS 15 ML OPH BOTH EYES ×4 (06:09→23:28)
[2018-03-16] MEDS: DEXTROSE 5%-0.45% NACL 1,000 ML IV ×2 (06:45→16:26)
[2018-03-16] MEDS: CEFEPIME 1GM/50 ML (PMX) 50 ML IVPB ×2 (08:44→21:05)
[2018-03-16] MEDS: FAMOTIDINE 20 MG INJ IV ×2 (08:44→21:05)
[2018-03-16] MEDS: ASPIRIN 81 MG TAB PO (08:44)
[2018-03-16] MEDS: MUPIROCIN 2% 22 GM OINT TOP ×2 (08:45→21:05)
[2018-03-16] MEDS: HEPARIN 5,000 UNIT/0.5 ML VIAL SC ×2 (10:38→21:05)
[2018-03-16] MEDS ORDERED: GLUCOSE GEL 15 GRAM TUBE BUCCAL (11:30)
[2018-03-16] MEDS ORDERED: GLUCOSE GEL 15 GRAM TUBE PO ×2 (11:30)
[2018-03-16] MEDS ORDERED: DEXTROSE 50% 50 ML SYRINGE IV ×2 (11:30)
[2018-03-16] MEDS ORDERED: GLUCAGON 1 MG INJ IM (11:30)
[2018-03-16 11:50] LABS: AADO2 Arterial 65.6 mmHg (7.0-24.0); Allen Test ACCEPTAB; Arterial Base Excess -4.5 mmol/L (-3.0-3); Arterial Blood Gas Oxygen Sat 97.9 mmHG (95.0-100.0); Arterial COHb 0.3 % (0.0-3.0); Arterial Fraction of Oxyhgb 97.4 % (93.0-99.0); Arterial HCO3 19.3 mmol/L (22.0-26.0); Arterial MetHb 0.2 % (0.0-1.5); Arterial Total Hemglobin 11.6 g/dl (12.0-18.0); Arterial pCO2 31.6 mmhg (35-45); Blood Gas PS 10; MODE VENT - CPAP; Site Right Radial
[2018-03-16] MEDS: INSULIN ASPART [NOVOLOG] 3 ML PEN SC ×3 (13:00→21:00)
[2018-03-16] MEDS: hydrALAzine 20 MG INJ IV (23:02)
[2018-03-17] MEDS: INSULIN ASPART [NOVOLOG] 3 ML PEN SC ×6 (00:32→21:00)
[2018-03-17] MEDS: DEXTROSE 5%-0.45% NACL 1,000 ML IV ×4 (00:53→23:39)
[2018-03-17] MEDS: OCULAR LUBRICANT 3.5 GM OPH OINT BOTH EYES ×4 (05:58→23:40)
[2018-03-17] MEDS: ARTIFICIAL TEARS 15 ML OPH BOTH EYES ×4 (05:59→23:40)
[2018-03-17 08:12] LABS: ADD MAN DIFF? NO
[2018-03-17] MEDS: CEFEPIME 1GM/50 ML (PMX) 50 ML IVPB (08:33)
[2018-03-17] MEDS: FAMOTIDINE 20 MG INJ IV ×2 (08:34→20:45)
[2018-03-17 08:35] LABS: ANION GAP 9 (8-16); BLOOD UREA NITROGEN 12 mg/dl (7-20); CALCIUM 7.8 mg/dl (8.4-10.2); CARBON DIOXIDE 20 mmol/L (21-31); CHLORIDE 115 mmol/L (97-110); CREATININE 0.93 mg/dl (0.61-1.24); GLUCOSE 139 mg/dl (70-220); POTASSIUM 4.3 mmol/L (3.5-5.1); SODIUM 140 mmol/L (135-144)
[2018-03-17] MEDS: ASPIRIN 81 MG TAB PO (08:35)
[2018-03-17] MEDS: MUPIROCIN 2% 22 GM OINT TOP ×2 (08:36→21:45)
[2018-03-17 08:51] LABS: ABNORMAL IP MESSAGE 1; BASOPHIL # 0.1 10^3/ul (0.0-0.1); EOSINOPHILS % 0.1 % (0.0-7.0); POSITIVE DIFF @See below; RED CELL DISTRIBUTION WIDTH 13.9 % (11.5-14.5)
[2018-03-17] MEDS: HEPARIN 5,000 UNIT/0.5 ML VIAL SC ×2 (08:54→21:07)
[2018-03-17] MEDS: hydrALAzine 20 MG INJ IV ×2 (11:35→21:44)
[2018-03-17 11:36] LABS: HEMATOCRIT 36.2 % (42.0-52.0); HEMOGLOBIN 12.2 g/dl (14.0-18.0); LYMPHOCYTES % 6.1 % (15.0-51.0); MEAN CORPUSCULAR HEMOGLOBIN 29.5 pg (29.0-33.0); MEAN CORPUSCULAR HGB CONC 33.7 g/dl (32.0-37.0); MEAN CORPUSCULAR VOLUME 87.4 fl (82.0-101.0); MEAN PLATELET VOLUME 10.5 fl (7.4-10.4); MONOCYTES % 4.5 % (0.0-11.0); NEUTROPHILS % 88.3 % (39.0-77.0); PLATELET COUNT 157 10^3/UL (140-415); RED BLOOD COUNT 4.14 10^6/ul (4.70-6.10)
[2018-03-17 11:36] LABS: WHITE BLOOD COUNT 10.2 10^3/ul (4.8-10.8)
[2018-03-17 11:37] LABS: BASOPHILS % 0.5 % (0.0-2.0); LYMPHOCYTES # 0.6 10^3/ul (0.8-2.9); MONOCYTE # 0.5 10^3/ul (0.3-0.9)
[2018-03-17] MEDS: ACETAMINOPHEN 650 MG SUPP PR (11:39)
[2018-03-17] MEDS: METOPROLOL 25 MG TAB PO (21:00)
[2018-03-17] MEDS: BENAZEPRIL 10 MG TAB PO (21:00)
[2018-03-18] MEDS: INSULIN ASPART [NOVOLOG] 3 ML PEN SC ×6 (01:00→20:15)
[2018-03-18] MEDS: ARTIFICIAL TEARS 15 ML OPH BOTH EYES ×3 (05:24→16:51)
[2018-03-18] MEDS: OCULAR LUBRICANT 3.5 GM OPH OINT BOTH EYES ×3 (05:25→16:51)
[2018-03-18 06:50] LABS: ADD MAN DIFF? NO
[2018-03-18 06:51] LABS: WHITE BLOOD COUNT 7.4 10^3/ul (4.8-10.8)
[2018-03-18 06:51] LABS: BASOPHIL # 0.1 10^3/ul (0.0-0.1); BASOPHILS % 0.7 % (0.0-2.0); EOSINOPHILS % 0.5 % (0.0-7.0); HEMOGLOBIN 11.8 g/dl (14.0-18.0); LYMPHOCYTES # 0.8 10^3/ul (0.8-2.9); LYMPHOCYTES % 11.2 % (15.0-51.0); MEAN CORPUSCULAR HEMOGLOBIN 29.1 pg (29.0-33.0); MEAN CORPUSCULAR HGB CONC 33.7 g/dl (32.0-37.0); MEAN CORPUSCULAR VOLUME 86.2 fl (82.0-101.0); MONOCYTE # 0.5 10^3/ul (0.3-0.9); MONOCYTES % 7.3 % (0.0-11.0); NEUTROPHIL # 5.9 10^3/ul (1.6-7.5); NEUTROPHILS % 79.8 % (39.0-77.0); PLATELET COUNT 161 10^3/UL (140-415); RED BLOOD COUNT 4.06 10^6/ul (4.70-6.10); RED CELL DISTRIBUTION WIDTH 13.5 % (11.5-14.5)
[2018-03-18 07:18] LABS: ANION GAP 12 (8-16); BLOOD UREA NITROGEN 13 mg/dl (7-20); CARBON DIOXIDE 22 mmol/L (21-31); CHLORIDE 109 mmol/L (97-110); CREATININE 0.95 mg/dl (0.61-1.24); GLUCOSE 159 mg/dl (70-220); POTASSIUM 3.8 mmol/L (3.5-5.1); SODIUM 139 mmol/L (135-144)
[2018-03-18] MEDS: DEXTROSE 5%-0.45% NACL 1,000 ML IV ×2 (08:35→12:00)
[2018-03-18] MEDS: METOPROLOL 25 MG TAB PO ×2 (08:48→20:11)
[2018-03-18] MEDS: HEPARIN 5,000 UNIT/0.5 ML VIAL SC ×2 (08:48→20:16)
[2018-03-18] MEDS: FAMOTIDINE 20 MG INJ IV (08:48)
[2018-03-18] MEDS: ASPIRIN 81 MG TAB PO (08:48)
[2018-03-18] MEDS: BENAZEPRIL 10 MG TAB PO ×2 (08:49→20:11)
[2018-03-18] MEDS: MUPIROCIN 2% 22 GM OINT TOP (08:49)
[2018-03-18] MEDS: CLONIDINE 0.1 MG/24 HR PATCH TRANSDERM (16:48)
[2018-03-18] MEDS ORDERED: morphine LIQ (10 MG/5 ML) CUP PO (16:51)
[2018-03-19] MEDS: FAMOTIDINE 20 MG INJ IV ×2 (00:11→08:09)
[2018-03-19] MEDS: DEXTROSE 5%-0.45% NACL 1,000 ML IV ×5 (00:11→21:11)
[2018-03-19] MEDS: MUPIROCIN 2% 22 GM OINT TOP ×3 (00:12→20:56)
[2018-03-19] MEDS: OCULAR LUBRICANT 3.5 GM OPH OINT BOTH EYES ×4 (00:12→17:05)
[2018-03-19] MEDS: ARTIFICIAL TEARS 15 ML OPH BOTH EYES ×4 (00:12→17:05)
[2018-03-19] MEDS: hydrALAzine 20 MG INJ IV (03:03)
[2018-03-19] MEDS: BENAZEPRIL 10 MG TAB PO ×2 (08:08→21:07)
[2018-03-19] MEDS: ASPIRIN 81 MG TAB PO (08:08)
[2018-03-19] MEDS: METOPROLOL 25 MG TAB PO ×2 (08:09→21:07)
[2018-03-19] MEDS: INSULIN ASPART [NOVOLOG] 3 ML PEN SC ×4 (08:20→21:01)
[2018-03-19] MEDS: HEPARIN 5,000 UNIT/0.5 ML VIAL SC ×2 (08:20→21:09)
[2018-03-19] MEDS: INSULIN GLARGINE [LANtus] 3 ML PEN SC (21:02)
[2018-03-20] MEDS: ARTIFICIAL TEARS 15 ML OPH BOTH EYES ×4 (00:30→17:13)
[2018-03-20] MEDS: OCULAR LUBRICANT 3.5 GM OPH OINT BOTH EYES ×4 (00:30→17:12)
[2018-03-20] MEDS: hydrALAzine 20 MG INJ IV (05:43)
[2018-03-20] MEDS: INSULIN ASPART [NOVOLOG] 3 ML PEN SC ×4 (07:51→21:26)
[2018-03-20] MEDS: ASPIRIN 81 MG TAB PO (08:10)
[2018-03-20] MEDS: METOPROLOL 25 MG TAB PO ×2 (08:11→21:22)
[2018-03-20] MEDS: BENAZEPRIL 10 MG TAB PO ×2 (08:11→21:21)
[2018-03-20] MEDS: HEPARIN 5,000 UNIT/0.5 ML VIAL SC ×2 (08:15→21:29)
[2018-03-20] MEDS: MUPIROCIN 2% 22 GM OINT TOP ×2 (08:23→21:27)
[2018-03-20] MEDS: DEXTROSE 5%-0.45% NACL 1,000 ML IV (12:19)
[2018-03-21] MEDS: ARTIFICIAL TEARS 15 ML OPH BOTH EYES ×4 (00:46→17:42)
[2018-03-21] MEDS: OCULAR LUBRICANT 3.5 GM OPH OINT BOTH EYES ×4 (00:46→17:42)
[2018-03-21] MEDS: INSULIN ASPART [NOVOLOG] 3 ML PEN SC ×4 (07:30→21:21)
[2018-03-21] MEDS: INSULIN GLARGINE [LANtus] 3 ML PEN SC (07:37)
[2018-03-21] MEDS: METOPROLOL 25 MG TAB PO ×2 (08:19→21:04)
[2018-03-21] MEDS: ASPIRIN 81 MG TAB PO (08:19)
[2018-03-21] MEDS: BENAZEPRIL 10 MG TAB PO (08:19)
[2018-03-21] MEDS: MUPIROCIN 2% 22 GM OINT TOP ×2 (08:20→21:03)
[2018-03-21] MEDS: HEPARIN 5,000 UNIT/0.5 ML VIAL SC ×2 (08:21→21:21)
[2018-03-21] MEDS: BENAZEPRIL 20 MG TAB PO (21:04)
[2018-03-21] MEDS: hydrALAzine 20 MG INJ IV (22:36)
[2018-03-22] MEDS: ARTIFICIAL TEARS 15 ML OPH BOTH EYES ×5 (00:30→23:19)
[2018-03-22] MEDS: OCULAR LUBRICANT 3.5 GM OPH OINT BOTH EYES ×5 (00:31→23:19)
[2018-03-22] MEDS: INSULIN ASPART [NOVOLOG] 3 ML PEN SC ×4 (07:50→20:51)
[2018-03-22] MEDS: INSULIN GLARGINE [LANtus] 3 ML PEN SC (07:57)
[2018-03-22] MEDS: METOPROLOL 25 MG TAB PO ×2 (08:11→20:45)
[2018-03-22] MEDS: ASPIRIN 81 MG TAB PO (08:11)
[2018-03-22] MEDS: BENAZEPRIL 20 MG TAB PO ×2 (08:12→20:44)
[2018-03-22] MEDS: MUPIROCIN 2% 22 GM OINT TOP ×2 (09:25→20:45)
[2018-03-22] MEDS: HEPARIN 5,000 UNIT/0.5 ML VIAL SC ×2 (09:43→21:02)
[2018-03-22] MEDS: REGADENOSON 0.4 MG/5 ML SYG (11:23)
[2018-03-23 01:27] LABS: ANION GAP 12 (8-16); BLOOD UREA NITROGEN 14 mg/dl (7-20); CALCIUM 8.4 mg/dl (8.4-10.2); CARBON DIOXIDE 32 mmol/L (21-31); CHLORIDE 99 mmol/L (97-110); CREATININE 0.92 mg/dl (0.61-1.24); GLUCOSE 166 mg/dl (70-220); MAGNESIUM 2.2 mg/dl (1.7-2.5); POTASSIUM 3.8 mmol/L (3.5-5.1); SODIUM 139 mmol/L (135-144)
[2018-03-23] MEDS: POTASSIUM CHLORIDE 20 MEQ POWDER FOR ORAL SOLN PO (04:38)
[2018-03-23] MEDS: OCULAR LUBRICANT 3.5 GM OPH OINT BOTH EYES ×4 (05:14→23:22)
[2018-03-23] MEDS: ARTIFICIAL TEARS 15 ML OPH BOTH EYES ×4 (05:14→23:22)
[2018-03-23] MEDS: INSULIN ASPART [NOVOLOG] 3 ML PEN SC ×4 (07:55→20:19)
[2018-03-23] MEDS: ASPIRIN 81 MG TAB PO (08:42)
[2018-03-23] MEDS: MUPIROCIN 2% 22 GM OINT TOP ×2 (08:42→20:22)
[2018-03-23] MEDS: BENAZEPRIL 20 MG TAB PO ×3 (08:43→20:21)
[2018-03-23] MEDS: METOPROLOL 25 MG TAB PO ×2 (08:43→20:22)
[2018-03-23] MEDS: HEPARIN 5,000 UNIT/0.5 ML VIAL SC ×2 (08:52→20:28)
[2018-03-23] MEDS: INSULIN GLARGINE [LANtus] 3 ML PEN SC (08:52)
[2018-03-24] MEDS: morphine 2 MG INJ IV (01:46)
[2018-03-24] MEDS: hydrALAzine 20 MG INJ IV (05:29)
[2018-03-24] MEDS: OCULAR LUBRICANT 3.5 GM OPH OINT BOTH EYES ×4 (05:30→23:08)
[2018-03-24] MEDS: ARTIFICIAL TEARS 15 ML OPH BOTH EYES ×4 (05:30→23:08)
[2018-03-24] MEDS: INSULIN ASPART [NOVOLOG] 3 ML PEN SC ×4 (07:53→20:45)
[2018-03-24] MEDS: INSULIN GLARGINE [LANtus] 3 ML PEN SC (08:02)
[2018-03-24] MEDS: ASPIRIN 81 MG TAB PO (09:27)
[2018-03-24] MEDS: METOPROLOL 25 MG TAB PO ×2 (09:28→20:46)
[2018-03-24] MEDS: BENAZEPRIL 20 MG TAB PO ×2 (09:29→20:46)
[2018-03-24] MEDS: MUPIROCIN 2% 22 GM OINT TOP ×2 (09:30→20:33)
[2018-03-24] MEDS: HEPARIN 5,000 UNIT/0.5 ML VIAL SC ×2 (09:39→20:46)
[2018-03-25] MEDS: ARTIFICIAL TEARS 15 ML OPH BOTH EYES ×4 (06:01→23:20)
[2018-03-25] MEDS: OCULAR LUBRICANT 3.5 GM OPH OINT BOTH EYES ×4 (06:01→23:20)
[2018-03-25 06:55] LABS: ADD MAN DIFF? NO
[2018-03-25 07:00] LABS: BASOPHILS % 1.2 % (0.0-2.0); EOSINOPHILS # 0.1 10^3/ul (0.0-0.5); EOSINOPHILS % 1.8 % (0.0-7.0); HEMATOCRIT 34.9 % (42.0-52.0); HEMOGLOBIN 11.6 g/dl (14.0-18.0); LYMPHOCYTES # 1.1 10^3/ul (0.8-2.9); LYMPHOCYTES % 33.3 % (15.0-51.0); MEAN CORPUSCULAR HEMOGLOBIN 29.7 pg (29.0-33.0); MEAN CORPUSCULAR HGB CONC 33.2 g/dl (32.0-37.0); MEAN CORPUSCULAR VOLUME 89.5 fl (82.0-101.0); MEAN PLATELET VOLUME 8.7 fl (7.4-10.4); MONOCYTE # 0.4 10^3/ul (0.3-0.9); MONOCYTES % 12.2 % (0.0-11.0); NEUTROPHIL # 1.7 10^3/ul (1.6-7.5); NEUTROPHILS % 51.2 % (39.0-77.0); PLATELET COUNT 241 10^3/UL (140-415); RED CELL DISTRIBUTION WIDTH 13.6 % (11.5-14.5)
[2018-03-25 07:00] LABS: WHITE BLOOD COUNT 3.3 10^3/ul (4.8-10.8)
[2018-03-25 07:34] LABS: ANION GAP 13 (8-16); BLOOD UREA NITROGEN 17 mg/dl (7-20); CALCIUM 8.7 mg/dl (8.4-10.2); CARBON DIOXIDE 31 mmol/L (21-31); CHLORIDE 100 mmol/L (97-110); GLUCOSE 134 mg/dl (70-220); POTASSIUM 4.3 mmol/L (3.5-5.1); SODIUM 140 mmol/L (135-144)
[2018-03-25] MEDS: INSULIN ASPART [NOVOLOG] 3 ML PEN SC ×4 (07:55→21:18)
[2018-03-25] MEDS: INSULIN GLARGINE [LANtus] 3 ML PEN SC (08:06)
[2018-03-25] MEDS: ASPIRIN 81 MG TAB PO (09:26)
[2018-03-25] MEDS: METOPROLOL 25 MG TAB PO ×2 (09:27→21:00)
[2018-03-25] MEDS: BENAZEPRIL 20 MG TAB PO ×2 (09:27→21:00)
[2018-03-25] MEDS: MUPIROCIN 2% 22 GM OINT TOP ×2 (09:28→21:12)
[2018-03-25] MEDS: HEPARIN 5,000 UNIT/0.5 ML VIAL SC ×2 (09:59→21:18)
[2018-03-25] MEDS: CLONIDINE 0.1 MG/24 HR PATCH TRANSDERM (15:57)
[2018-03-25] MEDS: ATORVASTATIN 10 MG TAB PO (21:09)
[2018-03-26] MEDS: ARTIFICIAL TEARS 15 ML OPH BOTH EYES ×4 (05:11→23:43)
[2018-03-26] MEDS: OCULAR LUBRICANT 3.5 GM OPH OINT BOTH EYES ×4 (05:11→23:42)
[2018-03-26] MEDS: INSULIN ASPART [NOVOLOG] 3 ML PEN SC ×4 (09:01→21:00)
[2018-03-26] MEDS: METOPROLOL 25 MG TAB PO ×2 (11:16→20:55)
[2018-03-26] MEDS: GLIMEPIRIDE 4 MG TAB PO (11:16)
[2018-03-26] MEDS: ASPIRIN 81 MG TAB PO (11:16)
[2018-03-26] MEDS: MUPIROCIN 2% 22 GM OINT TOP ×2 (11:17→20:55)
[2018-03-26] MEDS: AMLODIPINE 10 MG TAB PO (11:17)
[2018-03-26] MEDS: BENAZEPRIL 20 MG TAB PO ×2 (11:17→20:55)
[2018-03-26] MEDS: HEPARIN 5,000 UNIT/0.5 ML VIAL SC ×2 (11:21→21:00)
[2018-03-26] MEDS: INSULIN GLARGINE [LANtus] 3 ML PEN SC (11:51)
[2018-03-26] MEDS: ATORVASTATIN 10 MG TAB PO (20:55)
[2018-03-27] MEDS: ARTIFICIAL TEARS 15 ML OPH BOTH EYES ×2 (06:28→12:00)
[2018-03-27] MEDS: OCULAR LUBRICANT 3.5 GM OPH OINT BOTH EYES ×2 (06:28→12:00)
[2018-03-27] MEDS: INSULIN ASPART [NOVOLOG] 3 ML PEN SC ×2 (07:49→12:17)
[2018-03-27] MEDS: GLIMEPIRIDE 4 MG TAB PO (07:49)
[2018-03-27] MEDS: INSULIN GLARGINE [LANtus] 3 ML PEN SC ×2 (08:00→09:52)
[2018-03-27] MEDS: BARIUM SULFATE 135 ML (E-Z HD) PO (08:25)
[2018-03-27] MEDS: METOPROLOL 25 MG TAB PO (09:49)
[2018-03-27] MEDS: MUPIROCIN 2% 22 GM OINT TOP (09:50)
[2018-03-27] MEDS: AMLODIPINE 10 MG TAB PO (09:50)
[2018-03-27] MEDS: ASPIRIN 81 MG TAB PO (09:50)
[2018-03-27] MEDS: BENAZEPRIL 20 MG TAB PO (09:50)
[2018-03-27] MEDS: HEPARIN 5,000 UNIT/0.5 ML VIAL SC (09:51)
== END 2018-03-27 14:15 | DRG 208 ==
LOC: ICU 20:16 → TEL 03-17 00:03 → MS1 03-26 08:48 → E/R 18:32
PROC: 5A1945Z Respiratory Ventilation, 24-96 Consecutive Hours (ICD-10-PCS; principal; 2018-03-13)
PROC: 06HM33Z Insertion of Infusion Device into Right Femoral Vein, Percutaneous Approach (ICD-10-PCS; 2018-03-13)
PROC: 0BH17EZ Insertion of Endotracheal Airway into Trachea, Via Natural or Artificial Opening (ICD-10-PCS; 2018-03-13)
DX: R09.2 Respiratory arrest (principal); J69.0 Pneumonitis due to inhalation of food and vomit; I46.9 Cardiac arrest, cause unspecified; G93.49 Other encephalopathy; N39.0 Urinary tract infection, site not specified; G93.1 Anoxic brain damage, not elsewhere classified; I82.612 Acute embolism and thrombosis of superficial veins of left upper extremity; J96.00 Acute respiratory failure, unspecified whether with hypoxia or hypercapnia; R09.02 Hypoxemia; Z86.73 Personal history of transient ischemic attack (TIA), and cerebral infarction without residual deficits; I10 Essential (primary) hypertension; E11.9 Type 2 diabetes mellitus without complications; G30.9 Alzheimer's disease, unspecified; F02.80 Dementia in other diseases classified elsewhere, unspecified severity, without behavioral disturbance, psychotic disturbance, mood disturbance, and anxiety; R40.2432 Glasgow coma scale score 3-8, at arrival to emergency department; E86.0 Dehydration; R00.1 Bradycardia, unspecified; T68.XXXA Hypothermia, initial encounter; I95.9 Hypotension, unspecified; R13.10 Dysphagia, unspecified; Z22.322 Carrier or suspected carrier of Methicillin resistant Staphylococcus aureus
CPT/HCPCS: 36415; 36600; 70450; 71045; 74177; 74230; 76937; 78452; 80048; 80053; 80061; 81001; 82150; 82803; 82962; 83036; 83605; 83690; 83735; 84100; 84484; 85025; 85378; 85384; 85610; 85730; 87040; 87081; 87086; 92526; 92610; 92611; 93005; 93017; 93306; 93970; 94002; 94003; 94770; 96361; 96365; 96375; 97110; 97116; 97163; 97530; 99291-25